=== PATIENT | female | born 2000 | race Two or more races ===

== ENCOUNTER 2023-08-11 22:40 | Emergency (ER) | payer MEDICAID, OTHER ==
[~2023-08-11] VITALS: Ht 149.9 cm; Wt 49.0 kg
[2023-08-11 23:18] VITALS: BP 122/64; TEMP 98; O2SAT 99
== END 2023-08-12 00:44 | disposition home or self-care (01) ==
LOC: ER 22:45
DX: S61.412A Laceration without foreign body of left hand, initial encounter (principal); W26.0XXA Contact with knife, initial encounter; Y93.89 Activity, other specified; Y92.098 Other place in other non-institutional residence as the place of occurrence of the external cause; Y99.8 Other external cause status